=== PATIENT | male | born 2000 | race Caucasian/White ===

== ENCOUNTER 2023-09-18 18:43 | Emergency (ER) | payer OTHER, SELFPAY ==
[2023-09-18 18:46] VITALS: BP 122/63; PULSE 75; RESP 16; TEMP 36.6; O2SAT 98; BMI 22.9
--- NOTE | 2023-09-18 18:46 | ED.LOWEXIN ---
HPI - Extremity Injury (Lower) General Chief Complaint: Extremity Injury, Lower Stated Complaint: LT great toe redness/swelling Time Seen by Provider: 09/18/23 18:55 Source: patient Mode of arrival: ambulatory Limitations: no limitations History of Present Illness ED Provider: SUHAS MORENO PA-C HPI Narrative: 22 year old male presents to the ED today for evaluation of left great toe pain. Reports pain and swelling to the medial aspect of his left great toenail. Reports purulent drainage from the area yesterday which has since resolved. Has not cut the toe nail recently. Denies known injury or trauma. Denies fever, chills. Injury: Left: toes Related Data Previous Rx's ?Medication ?Instructions ?Recorded cephalexin 500 mg capsule 500 mg PO BID 7 days #14 caps 09/18/23 Allergies Allergy/AdvReac Type Severity Reaction Status Date / Time No Known Allergies Allergy Verified 09/18/23 18:49 REPLACED BY [facility] Past Medical History Attestation statement: The following information was validated with the patient. Source: old records reviewed and nursing notes reviewed Social History Social History Advance Directives: No Advance Directives Information Provided: No Physical Exam Vital Signs: Vital Signs: Last Vital Signs Temp 97.9 F 09/18/23 19:01 Pulse 75 09/18/23 19:01 Resp 16 09/18/23 19:01 BP 122/63 09/18/23 19:01 Pulse Ox 98 09/18/23 19:01 O2 Del Method Room Air 09/18/23 19:01 BMI result Body Mass Index 22.9 Vital signs stable Const: General: cooperative, healthy appearing, comfortable and no acute distress Orientation/consciousness: patient oriented x3 Limitations: no limitations HEENT: Head: Yes normal to inspection, Yes No palpable skull fracture present, Yes normocephalic and Yes atraumatic Eyes: General: appearance normal, both eyes and all related structures Resp: Effort & Inspection: normal respiratory effort and able to speak in complete sentences Auscultation: clear to auscultation bilaterally Cardio: Rate: regular rate Rhythm: regular rhythm Skin: General skin exam: no rashes or lesions noted Neuro: General: patient oriented x3 and gait normal Extrem: Other: + left great toe with minimal swelling noted to medial aspect of nail fold. no active discharge. Mildly tender to palpation. No palpable fluctuance or warmth. No warmth at the MCP joint. Full ROM intact to great toe. Course Course Course Narrative: 1849-- Patient's physical exam is consistent with paronychia. Patient reports drainage yesterday however there is no fluctuance today that would warrant drainage. will send keflex to pharmacy. advised to follow up with pcp and podiatry if symptoms persist. Patient has remained stable throughout ED visit today. Discussed worrisome signs and symptoms and when to return to the ED. All questions answered at this time. Patient is agreeable with disposition and stable for discharge. Medical Decision Making Medical Decision Making MDM Narrative: 22 year old male presents to the ED today for evaluation of left great toe pain. left great toe with minimal swelling noted to medial aspect of nail fold. no active discharge. Mildly tender to palpation. No palpable fluctuance or warmth. No warmth at the MCP joint. Full ROM intact to great toe. Differential diagnosis includes ingrown toenail, paronychia Plan for disposition. Differential Diagnosis Differential Diagnoses: The differential diagnosis associated with the presentation includes as above. Admission/Observation not indicated. Independent Historian Clinical information obtained from an independent historian. History obtained from or confirmed by: Parent (mom) Prescription Management I considered prescription management with: Antibiotic (keflex) Social Determinants Patient?s care significantly limited by Social Determinants of Health including: Other Social Determinant of Health Critical Care Time Critical Care Time Critical Care Time: No Discharge Plan Discharge Clinical Impression: Paronychia of great toe of left foot Patient Disposition: Home, Self-Care Instructions: Paronychia (ED) Additional Instructions: Your exam is consistent with a paronychia. Treatment for this is with oral antibiotics. Apply warm compresses to toe multiple times daily to help the area drain. Follow up with PCP. You have also been provided with a referral to a drop wire hanger who you can follow-up with. Return with new or worsening symptoms. In the case of an emergency call 911. Prescriptions: New cephalexin 500 mg capsule 500 mg PO BID 7 Days Qty: 14 0RF Referrals: Wilbert Brush MD [Physician] - Interventions: ED Discharge Assessment Last Done: 09/18/23 19:01 Discharge Date/Time: 09/18/23 19:01 Print Language: Macedonian
[2023-09-18 19:01] VITALS: BP 122/63; PULSE 75; RESP 16; TEMP 36.6; O2SAT 98
== END 2023-09-18 19:01 | disposition home or self-care (01) ==
LOC: HO.ED 18:57
PROVIDERS: Emergency Provider Emergency Medicine
DX: L03.032 Cellulitis of left toe (principal)
CPT/HCPCS: 99282; 99283